=== PATIENT | male | born 1990 | race Hispanic/Latino ===

== ENCOUNTER 2017-10-24 09:15 | Emergency (ER) | payer OTHER ==
[~2017-10-24] VITALS: Ht 167.6 cm; Wt 102.1 kg
--- NOTE | 2017-10-24 09:41 | ED GENERAL ADULT ---
History of Present Illness General Chief Complaint: General Adult Stated Complaint: EPIGASTRIC PAIN, SOB , THROAT TIGHTNESS Source: patient Exam Limitations: no limitations Vital Signs & Intake/Output Vital Signs & Intake/Output Vital Signs Date Time Temp Pulse Resp B/P B/P Pulse O2 O2 Flow FiO2 Mean Ox Delivery Rate 10/24 1452 98.9 83 18 132/84 97 Room Air Room Air 10/24 1209 99.1 84 21 140/84 97 Room Air Room Air 10/24 0924 98 Room Air Room Air 10/24 0919 97.5 79 18 145/73 100 Room Air Allergies Coded Allergies: No Known Allergies (10/24/17) Reconcile Medications No Known Home Medications Triage Note: BIBA, 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 PT ARRIVES TO ED, ABLE TO AMBULATE TO ED STRETCHER, GAIT STABLE. PT CURRENTLY C/O UPPER ABD/EPIGASTRIC PAIN, NO N/V/D, NORMAL BM THIS MORNING. SURG HX CHOLY Triage Nurses Notes Reviewed? yes Onset: Abrupt Duration: hour(s): Timing: recent history HPI: 10/24/17 1:12 PM 27-year-old man presents to the emergency department for throat tightness and epigastric and lower abdominal pain. 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 He says he's intermittently got the symptoms over the past year. They come and go. He's been told that he has anxiety. He denies any chest pain. He denies shortness of breath. In the emergency department chest x-ray labs and EKG were unremarkable. His PERC score is low risk. His symptoms resolved with Ativan and GI cocktail. Past History Travel History Traveled to [place] past 21 day No Medical History Any Pertinent Medical History? 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 No Review of Systems Review of Systems Constitutional: Denies: fever. EENTM: Reports: see HPI. Respiratory: Denies: short of breath. Cardiovascular: Denies: chest pain. GI: Reports: abdominal pain. Genitourinary: Reports: no symptoms. Musculoskeletal: Reports: no symptoms. Skin: Denies: rash. Neurological/Psychological: Reports: no symptoms. Hematologic/Endocrine: Reports: no symptoms. Physical Exam Physical Exam General Appearance: well developed/nourished, alert, awake, anxious, mild distress Head: atraumatic, normal appearance Eyes: Bilateral: normal appearance, PERRL, EOMI. Ears, Nose, Throat: normal pharynx, normal ENT inspection Neck: normal inspection, supple, full range of motion Respiratory: normal breath sounds, chest non-tender Cardiovascular: regular rate/rhythm Peripheral Pulses: 4+ radial (R), 4+ radial (L) Gastrointestinal: soft, tenderness Back: normal range of motion Extremities: normal inspection, normal range of motion Neurologic/Psych: no motor/sensory deficits, awake, alert Skin: intact, normal color, warm/dry Core Measures ACS in differential dx? No CVA/TIA Diagnosis: No Sepsis Present: No Sepsis Focused Exam Completed? No Progress Differential Diagnoses I considered the following diagnoses in my evaluation of the patient: [Allergic reaction, retropharyngeal abscess, peritonsillar abscess, pharyngitis, tetanus, appendicitis, gastritis, pancreatitis, anxiety reaction,] Plan of Care: Orders Procedure Date/time Status TROPONIN LEVEL 10/24 1140 Complete URINALYSIS 10/24 1054 Complete D-DIMER 10/24 1025 Complete EKG 10/24 1025 Active COMPREHENSIVE METABOLIC PANEL 10/24 1020 Complete CBC WITHOUT DIFFERENTIAL 10/24 1020 Complete Current Medications Sig/Sofía Start time Last Medication Dose Stop Time Status Admin Pantoprazole Sodium 40 MG DAILY 10/24 1025 UNVr 10/24 (Protonix) 1040 Laboratory Tests 10/24/17 1140: Anion Gap 13, Estimated GFR > 60, BUN/Creatinine Ratio 11.3, Glucose 95, Calcium 9.8, Total Bilirubin 0.5, AST 47, ALT 87 H, Alkaline Phosphatase 111, Troponin I < 0.01, Total Protein 8.0, Albumin 4.7, Globulin 3.3, Albumin/Globulin Ratio 1.4 10/24/17 1100: D-Dimer High Sensitivty 200, CBC w Diff NO MAN DIFF REQ, RBC 5.34, MCV 87.0, MCH 30.2, MCHC 34.7, RDW 13.6, MPV 8.6, Gran % 75.7 H, Lymphocytes % 15.7 L, Monocytes % 7.8, Eosinophils % 0.4, Basophils % 0.4, Absolute Granulocytes 7.0 H, Absolute Lymphocytes 1.4, Absolute Monocytes 0.7 H, Absolute Eosinophils 0, Absolute Basophils 0 10/24/17 1030: Urine Color YEL, Urine Clarity CLEAR, Urine pH 7.5, Ur Specific [place] 1.010, Urine Protein NEG, Urine Ketones NEG, Urine Nitrite NEG, Urine Bilirubin NEG, Urine Urobilinogen 0.2, Ur Leukocyte Esterase NEG, Ur Microscopic EXAM NOT REQUIRED, Urine Hemoglobin NEG, Urine Glucose NEG 10/24/17 1025: Troponin I Cancelled Initial ED EKG: NSR Departure Departure Disposition: HOME OR SELF CARE Condition: Stable Clinical Impression Primary Impression: Abdominal pain Departure Forms: Customer Survey General Discharge Information Prescriptions: Current Visit Scripts No Known Home Medications Comments The patient's symptoms completely resolved with Ativan and GI cocktail. He was instructed to follow-up with a administrative nursing supervisor or to return to the emergency department should his symptoms recur .CT scan of the abdomen and pelvis was negative. Labs and EKG and chest x-ray were unremarkable. Critical Care Note Critical Care Note Critical Care Time: non-applicable
[2017-10-24 11:11] LABS: ABSOLUTE BASOPHIL COUNT 0 /CUMM (0.0-0.2); ABSOLUTE EOSINOPHIL COUNT 0 /CUMM (0.0-0.7); ABSOLUTE LYMPH COUNT 1.4 /CUMM (1.2-3.4); ABSOLUTE MONOCYTE COUNT 0.7 /CUMM (0.10-0.60); BASOPHIL % 0.4 % (0.0-2.0); EOSINOPHIL % 0.4 % (0-5); GRANULOCYTE % 75.7 % (42.2-75.2); HEMATOCRIT 46.5 % (42-52); MEAN CORPUSCULAR HGB 30.2 PG (27.0-31.0); MEAN CORPUSCULAR HGB CONC 34.7 G/DL (33.0-37.0); MEAN PLATELET VOLUME 8.6 FL (7.4-10.4); PLATELET COUNT 239 /CUMM (130-400); RBC DISTRIBUTION WIDTH 13.6 % (11.5-14.5); RED BLOOD CELL CT 5.34 /CUMM (4.70-6.10); WHITE BLOOD CELL COUNT 9.2 /CUMM (4.8-10.8)
--- NOTE | 2017-10-24 11:28 | RADIOLOGY REPORT ---
EXAMINATION: XR PORTABLE CHEST CLINICAL INFORMATION: Throat tightness. Chest pain. COMPARISON: None TECHNIQUE: Portable AP semierect 75 degrees upright view of the chest was obtained. FINDINGS: The heart is normal in size. There is no congestion or focal consolidation. The bony thorax is unremarkable. IMPRESSION: Normal chest.
--- NOTE | 2017-10-24 11:35 | CT SCAN REPORT ---
EXAMINATION: CT ABD PELVIS W/O IV CONTRAS CLINICAL INFORMATION: Pain COMPARISON: None TECHNIQUE: Multidetector volumetric imaging was performed from the superior aspect of the liver through the pubic symphysis Study done without contrast. Sagittal and coronal reformatted images were obtained on the technologist's workstation. DLP: 618 mGy-cm FINDINGS: LOWER THORAX: Included lung bases are clear. HEPATOBILIARY: No focal hepatic lesions. No biliary ductal dilatation. GALLBLADDER: Has been removed. SPLEEN: Spleen is normal in size. PANCREAS: No focal mass or ductal dilatation. STOMACH AND GASTROINTESTINAL TRACT: Stomach is grossly unremarkable. There is no bowel distention or thickening. No CT evidence of appendicitis. ADRENALS: No adrenal nodules. KIDNEYS/URETERS: No hydronephrosis, stones or solid mass lesions. URINARY BLADDER: Urinary bladder is unopacified partially decompressed. PELVIC VISCERA: Rectum and perirectal fat are clear. Prostate unremarkable. No fluid or inguinal lymphadenopathy. PERITONEUM: Surgical clip in the LEFT lower quadrant probably migrated from prior cholecystectomy. LYMPH NODES: No lymphadenopathy. VASCULAR: Unremarkable BONES, ABDOMINAL WALL AND SOFT TISSUES: Age-appropriate changes of the spine and skeletal system, no destructive osteolytic or osteosclerotic bone lesion found IMPRESSION: No CT evidence of acute intra-abdominal process to explain patient's pain symptoms. No renal stones or hydronephrosis found. Surgical clips of prior cholecystectomy present.
[2017-10-24 14:52] VITALS: BP 132/84
== END 2017-10-24 14:52 ==
LOC: ERH 09:15
PROVIDERS: Emergency Medicine
DX: R10.13 Epigastric pain (principal)
CPT/HCPCS: 71045; 74176; 81003; 93005; 93010; 96361; 96374; 96375; J1200; J2930